=== PATIENT | female | born 1965 | race American Indian/Alaskan Native ===

== ENCOUNTER 2020-08-06 08:30 | Emergency (ER) | payer BC ==
[2020-08-06 08:43] VITALS: BP 136/88
[2020-08-06] MEDS ORDERED: BUTALB/ACETAMINOPHEN/CAFFEINE TAB PO ONE (09:13)
[2020-08-06] MEDS ORDERED: HYDROcodone/ACETAMINOPHEN 5-325 MG TAB PO ONE (09:13)
--- NOTE | 2020-08-06 09:25 | Emergency Department Report ---
ED General Adult HPI - General Chief complaint: Head Injury Stated complaint: FALL/HEAD INJURY Time Seen by Provider: 08/06/20 09:13 Source: patient, EMS Mode of arrival: Wheelchair Limitations: No Limitations - History of Present Illness Initial comments: 55-year-old female with history of hypertension presents with chief complaint of head injury. She reports this when she slipped on something causing her to fall forward and strike her head and left orbit on a fire extinguisher. Denies loss of consciousness. She does not take blood thinners. She reports a moderate to severe headache, mild dizziness but denies vomiting, vision changes. Symptoms are moderate to severe, sudden in onset, no alleviating or exacerbating factors - Related Data Previous Rx's Medication Instructions Recorded Last Taken Type Butalb/Acetamin/Caff 50-325-40 1 tab PO Q6HR PRN #12 tab 08/06/20 Unknown Rx [Fioricet 50-325-40] Allergies Allergy/AdvReac Type Severity Reaction Status Date / Time naproxen [From Naprosyn] Allergy Vomiting Verified 08/06/20 08:38 ED Review of Systems ROS: Stated complaint: FALL/HEAD INJURY Other details as noted in HPI Comment: All other systems reviewed and negative ED Past Medical Hx - Past Medical History Hx Hypertension: Yes - Surgical History Additional Surgical History: CSECTION - Social History Smoking Status: Never Smoker Substance Use Type: None - Medications Home Medications: Home Medications Medication Instructions Recorded Confirmed Last Taken Type Butalb/Acetamin/Caff 50-325-40 1 tab PO Q6HR PRN #12 tab 08/06/20 Unknown Rx [Fioricet 50-325-40] ED Physical Exam - General Limitations: No Limitations General appearance: alert, in no apparent distress - Head Head exam: Present: normocephalic, other (Small frontal hematoma above the left orbit, small abrasion, mild orbital floor tenderness on the left with slight swelling) - Eye Eye exam: Present: normal appearance - ENT ENT exam: Present: mucous membranes moist - Neck Neck exam: Present: normal inspection - Respiratory Respiratory exam: Present: normal lung sounds bilaterally. Absent: respiratory distress - Cardiovascular Cardiovascular Exam: Present: regular rate, normal rhythm. Absent: systolic murmur, diastolic murmur, rubs, gallop - GI/Abdominal GI/Abdominal exam: Present: soft, normal bowel sounds - Extremities Exam Extremities exam: Present: normal inspection - Back Exam Back exam: Present: normal inspection - Neurological Exam Neurological exam: Present: alert, oriented X3 - Psychiatric Psychiatric exam: Present: normal affect, normal mood - Skin Skin exam: Present: warm, dry, intact, normal color. Absent: rash ED Course Vital Signs 08/06/20 08:40 Temperature 98.8 F Pulse Rate 80 Respiratory 18 Rate Blood Pressure 136/88 O2 Sat by Pulse 96 Oximetry ED Medical Decision Making - Radiology Data Radiology results: report reviewed Small frontal hematoma otherwise no fracture, no acute intracranial hemorrhage - Medical Decision Making Patient presenting after head injury. Reports headache, dizziness, facial pain but denies any visual change or eye pain. On exam there is a small hematoma above the left orbit with a slight abrasion noted there is also some mild swelling and tenderness to the orbital floor. CTs will be obtained to rule out fracture/intracranial hemorrhage. Patient given Fioricet and [place]. CT is negative for acute findings. Advised on supportive care and outpatient PCP follow-up. Return precautions were given. - Differential Diagnosis Contusion, abrasion, rule out fracture, rule out ICH Critical care attestation.: If time is entered above; I have spent that time in minutes in the direct care of this critically ill patient, excluding procedure time. ED Disposition Clinical Impression: Traumatic hematoma of forehead Qualifiers: Encounter type: initial encounter Qualified Code(s): S00.83XA - Contusion of other part of head, initial encounter Closed head injury Qualifiers: Encounter type: initial encounter Qualified Code(s): S09.90XA - Unspecified injury of head, initial encounter Disposition: - TO HOME OR SELFCARE Is pt being admited?: No Condition: Good Instructions: Head Injury, Adult, [id number], Facial or Scalp Contusion Prescriptions: Butalb/Acetamin/Caff 50-325-40 [Fioricet 50-325-40] 1 tab PO Q6HR PRN #12 tab PRN Reason: Headache Referrals: PRIMARY CARE, [Primary Care Provider] - 3-5 Days Time of Disposition: 10:02
--- NOTE | 2020-08-06 09:52 | Cat Scan Report ---
CT HEAD WITHOUT CONTRAST INDICATION / CLINICAL INFORMATION: MAIN. Left-sided hip pain TECHNIQUE: All CT scans at this location are performed using CT dose reduction for ALARA by means of automated e xposure control. COMPARISON: None available. FINDINGS: There is no acute intracranial hemorrhage. Ventricles are normal in size without midline shift or mas s effect. There are some scattered areas of low-attenuation periventricular white matter which could represent nonspecific white matter change. No acute bone findings are seen. There is left frontal sca lp hematoma with soft tissue gas best seen on axial images. No underlying fractures seen ADDITIONAL FINDINGS: None. IMPRESSION: 1. No acute intracranial hemorrhage. 2. Small left frontal scalp hematoma. Signer Name: Magan Ruiz MD Signed: 08/06/2020 9:48 AM Workstation Name: [id number]
--- NOTE | 2020-08-06 09:55 | Cat Scan Report ---
CT MAXILLOFACIAL WITHOUT CONTRAST INDICATION / CLINICAL INFORMATION: MAIN. TECHNIQUE: All CT scans at this location are performed using CT dose reduction for ALARA by means of automated e xposure control. COMPARISON: None available. FINDINGS: FACIAL BONES: There is a small hematoma involving left frontal scalp. However, there is no clear CT e vidence of acute fracture involving the visualized facial bones at. The orbital drummond, sinuses and zy gomatic arches appear intact. This should be noted that the right mandibular condyle was not fully in cluded on this exam. PARANASAL SINUSES: There is minimal mucosal thickening along the inferior left maxillary sinus. Other da silva I, the paranasal sinuses are clear. There is mild to moderate deviation of the nasal septum towa rd the left with presence of a prominent right vargas bullosa. The optic globes demonstrate appropria te size and configuration. ORBITS: No significant post septal inflammatory changes are identified. The optic globes demonstrate appropriate size and configuration. VISUALIZED INTRACRANIAL STRUCTURES: No significant abnormality. ADDITIONAL FINDINGS: None. IMPRESSION: 1. There is a small hematoma involving left frontal scalp. There is no clear CT evidence of acute f racture involving the visualized facial bones. The study was specified as stat and dictated on an emergent basis at 8:49 AM Central standard time. Signer Name: Floyd Calvo MD Signed: 08/06/2020 9:51 AM Workstation Name: [id number]
== END 2020-08-06 10:23 | disposition home or self-care (01) ==
LOC: ED 08:30
DX: S00.83XA Contusion of other part of head, initial encounter (principal); I10 Essential (primary) hypertension; Z79.899 Other long term (current) drug therapy; W18.30XA Fall on same level, unspecified, initial encounter; Y93.89 Activity, other specified; Y92.89 Other specified places as the place of occurrence of the external cause; Y99.8 Other external cause status
CPT/HCPCS: 70450; 70486

== ENCOUNTER 2020-10-23 20:25 | Inpatient (IN) | payer BC ==
[2020-10-23] MEDS ORDERED: SODIUM CHLORIDE 0.9% 1000 ML 2,000 ML IV ONE (21:54)
--- NOTE | 2020-10-23 21:56 | Event Note ---
ED Screening Note Date of service: 10/23/20 Time: 21:54 ED Screening Note: 55-year-old -Chinese female presents to the emergency room for increased thirstiness fatigue and urinary frequency. Patient was seen by her doctor today old was diagnosed with diabetes and sent to the emergency room. Patient's blood sugar in triage was greater than 600. This initial assessment/diagnostic orders/clinical plan/treatment(s) is/are subject to change based on patients health status, clinical progression and re- assessment by fellow clinical providers in the ED. Further treatment and workup at subsequent clinical providers discretion. Patient/guardian urged not to elope from the ED as their condition may be serious if not clinically assessed and managed. Initial orders include:
[2020-10-23] MEDS ORDERED: INSULIN REGULAR, HUMAN 100 UNITS/1 ML IV ONE (22:09)
--- NOTE | 2020-10-23 22:14 | Emergency Department Report ---
HPI - General Chief Complaint: Hyperglycemia Time Seen by Provider: 10/23/20 22:09 - HPI HPI: 55-year-old female with only known history being hypertension presents complaining of several symptoms. Patient reports that for the last 2 weeks she has had severely increased thirst and very frequent urination. Over the last 3 days she has developed persistent dry mouth, lightheadedness, generalized weakness, and blurry vision. She saw her regular doctor yesterday who measured her blood glucose and it was too high to read. She was sent home on Metformin but decided to come in because of the aforementioned symptoms. Otherwise she has not tried anything for her symptoms. There are no known aggravating or alleviating factors, although on further questioning, she states that she has some shortness of breath only with exertion. She denies any recent fever/chills, headache, neck pain, back pain, chest pain, cough, abdominal pain, nausea/vomiting, dysuria, focal weakness, sensory changes, or any other complaints. ED Past Medical Hx - Past Medical History Hx Hypertension: Yes - Surgical History Additional Surgical History: CSECTION - Social History Smoking Status: Never Smoker - Medications Home Medications: Home Medications Medication Instructions Recorded Confirmed Last Taken Type Butalb/Acetamin/Caff 50-325-40 1 tab PO Q6HR PRN #12 tab 08/06/20 Unknown Rx [Fioricet 50-325-40] ED Review of Systems ROS: Stated complaint: VISON VERY WEAK,TIAGO Other details as noted in HPI Constitutional: denies: chills, fever Eyes: vision change. denies: eye pain ENT: denies: throat pain, congestion Respiratory: SOB with exertion. denies: cough, shortness of breath Cardiovascular: denies: chest pain, syncope Endocrine: increased thirst, increased urine Gastrointestinal: denies: abdominal pain, nausea, vomiting Genitourinary: denies: dysuria, hematuria Musculoskeletal: denies: back pain, myalgia Skin: denies: rash Neurological: denies: headache, weakness, numbness Physical Exam - Physical Exam Vital Signs: Vital Signs 10/23/20 21:32 Temperature 98.7 F Pulse Rate 120 H Respiratory 18 Rate Blood Pressure 172/103 O2 Sat by Pulse 99 Oximetry Physical Exam: GENERAL: Well developed and well nourished. No acute distress HEENT: Normocephalic. No obvious signs of trauma. Dry mucous membranes. EYES: Extraocular movements are intact. Pupils are equal round and reactive to light bilaterally NECK: Supple. Trachea is midline. LUNGS: Nonlabored breathing. Equal chest rise bilaterally. Clear to auscultation bilaterally. HEART/CARDIOVASCULAR: Tachycardic but with regular rhythm. No murmurs or rubs. VASCULAR: 2+ peripheral pulses. Cap refill < 2 seconds ABDOMEN: Abdomen is soft and nondistended. There is no significant tenderness, guarding or rebound. SKIN: Skin is warm and dry NEURO: Patient is awake, alert, and oriented. classification officer II-XII grossly intact. No focal deficits. Normal motor and sensory exam throughout. Normal speech. MUSCULOSKELETAL: No obvious deformities. No significant tenderness. Normal ROM throughout. BACK/SPINE: No costovertebral angle tenderness. ED Course Vital Signs 10/23/20 21:32 Temperature 98.7 F Pulse Rate 120 H Respiratory 18 Rate Blood Pressure 172/103 O2 Sat by Pulse 99 Oximetry ED Medical Decision Making - Lab Data Result diagrams: 10/23/20 21:38 10/24/20 07:45 Lab Results 10/23/20 10/23/20 10/23/20 Range/Units 21:36 21:38 21:38 WBC 6.8 (4.5-11.0) K/mm3 RBC 4.97 (3.65-5.03) M/mm3 Hgb 14.0 (10.1-14.3) gm/dl Hct 43.4 H (30.3-42.9) % MCV 87 (79-97) fl MCH 28 (28-32) pg MCHC 32 (30-34) % RDW 13.0 L (13.2-15.2) % Plt Count 227 (140-440) K/mm3 Lymph % (Auto) 42.9 H (13.4-35.0) % Buchanan % (Auto) 7.0 (0.0-7.3) % Eos % (Auto) 0.9 (0.0-4.3) % Baso % (Auto) 0.4 (0.0-1.8) % Lymph # (Auto) 2.9 (1.2-5.4) K/mm3 Buchanan # (Auto) 0.5 (0.0-0.8) K/mm3 Eos # (Auto) 0.1 (0.0-0.4) K/mm3 Baso # (Auto) 0.0 (0.0-0.1) K/mm3 Seg Neutrophils % 48.8 (40.0-70.0) % Seg Neutrophils # 3.3 (1.8-7.7) K/mm3 VBG pH (7.320-7.420) Sodium 132 L (137-145) mmol/L Potassium 4.9 (3.6-5.0) mmol/L Chloride 90.5 L (98-107) mmol/L Carbon Dioxide 23 (22-30) mmol/L Anion Gap 23 mmol/L BUN 20 H (7-17) mg/dL Creatinine 1.4 H (0.6-1.2) mg/dL Estimated GFR 47 ml/min BUN/Creatinine Ratio 14 % Glucose (65-100) mg/dL POC Glucose > 600 H (70-105) mg/dL Calcium 9.8 (8.4-10.2) mg/dL Total Bilirubin 0.60 (0.1-1.2) mg/dL AST 15 (5-40) units/L ALT 29 (7-56) units/L Alkaline Phosphatase 114 (35-129) units/L Troponin T (0.00-0.029) ng/mL NT-Pro-B Natriuret Pep (0-900) pg/mL Total Protein 7.9 (6.3-8.2) g/dL Albumin 4.6 (3.9-5) g/dL Albumin/Globulin Ratio 1.4 % Lipase (13-60) units/L 10/23/20 10/23/20 10/24/20 Range/Units 21:38 21:38 00:45 WBC (4.5-11.0) K/mm3 RBC (3.65-5.03) M/mm3 Hgb (10.1-14.3) gm/dl Hct (30.3-42.9) % MCV (79-97) fl MCH (28-32) pg MCHC (30-34) % RDW (13.2-15.2) % Plt Count (140-440) K/mm3 Lymph % (Auto) (13.4-35.0) % Buchanan % (Auto) (0.0-7.3) % Eos % (Auto) (0.0-4.3) % Baso % (Auto) (0.0-1.8) % Lymph # (Auto) (1.2-5.4) K/mm3 Buchanan # (Auto) (0.0-0.8) K/mm3 Eos # (Auto) (0.0-0.4) K/mm3 Baso # (Auto) (0.0-0.1) K/mm3 Seg Neutrophils % (40.0-70.0) % Seg Neutrophils # (1.8-7.7) K/mm3 VBG pH 7.312 L (7.320-7.420) Sodium (137-145) mmol/L Potassium (3.6-5.0) mmol/L Chloride (98-107) mmol/L Carbon Dioxide (22-30) mmol/L Anion Gap mmol/L BUN (7-17) mg/dL Creatinine (0.6-1.2) mg/dL Estimated GFR ml/min BUN/Creatinine Ratio % Glucose (65-100) mg/dL POC Glucose 491 H (70-105) mg/dL Calcium (8.4-10.2) mg/dL Total Bilirubin (0.1-1.2) mg/dL AST (5-40) units/L ALT (7-56) units/L Alkaline Phosphatase (35-129) units/L Troponin T (0.00-0.029) ng/mL NT-Pro-B Natriuret Pep (0-900) pg/mL Total Protein (6.3-8.2) g/dL Albumin (3.9-5) g/dL Albumin/Globulin Ratio % Lipase 34 (13-60) units/L 06/23/21 Range/Units 03:13 WBC (4.5-11.0) K/mm3 RBC (3.65-5.03) M/mm3 Hgb (10.1-14.3) gm/dl Hct (30.3-42.9) % MCV (79-97) fl MCH (28-32) pg MCHC (30-34) % RDW (13.2-15.2) % Plt Count (140-440) K/mm3 Lymph % (Auto) (13.4-35.0) % Buchanan % (Auto) (0.0-7.3) % Eos % (Auto) (0.0-4.3) % Baso % (Auto) (0.0-1.8) % Lymph # (Auto) (1.2-5.4) K/mm3 Buchanan # (Auto) (0.0-0.8) K/mm3 Eos # (Auto) (0.0-0.4) K/mm3 Baso # (Auto) (0.0-0.1) K/mm3 Seg Neutrophils % (40.0-70.0) % Seg Neutrophils # (1.8-7.7) K/mm3 VBG pH (7.320-7.420) Sodium (137-145) mmol/L Potassium (3.6-5.0) mmol/L Chloride (98-107) mmol/L Carbon Dioxide (22-30) mmol/L Anion Gap mmol/L BUN (7-17) mg/dL Creatinine (0.6-1.2) mg/dL Estimated GFR ml/min BUN/Creatinine Ratio % Glucose (65-100) mg/dL POC Glucose (70-105) mg/dL Calcium (8.4-10.2) mg/dL Total Bilirubin (0.1-1.2) mg/dL AST (5-40) units/L ALT (7-56) units/L Alkaline Phosphatase (35-129) units/L Troponin T < 0.010 (0.00-0.029) ng/mL NT-Pro-B Natriuret Pep 94.71 (0-900) pg/mL Total Protein (6.3-8.2) g/dL Albumin (3.9-5) g/dL Albumin/Globulin Ratio % Lipase (13-60) units/L - Radiology Data CT HEAD WITHOUT CONTRAST INDICATION / CLINICAL INFORMATION: Patient complains of blurry vision, DKA. TECHNIQUE: All CT scans at this location are performed using CT dose reduction for ALARA by means of automated exposure control. COMPARISON: 08/06/2020 FINDINGS: No acute intracranial hemorrhage. Ventricles are normal in size without midline shift or mass effect. There is some scattered areas of low- attenuation in the paratracheal and central white matter suggesting nonspecific white matter change. Aurora bullosa right middle nasal turbinate. ADDITIONAL FINDINGS: None. IMPRESSION: 1. No acute intracranial abnormality. Nonspecific white matter change in the periventricular and central white matter. Signer Name: Magan Tompkins MD Signed: 10/24/2020 12:36 AM Workstation Name: [id number] Transcribed By: MOHAN Dictated By: GERI TOMPKINS MD Electronically Authenticated By: GERI TOMPKINS MD Signed Date/Time: 10/24/20 0036 CHEST 2 VIEWS INDICATION / CLINICAL INFORMATION: DKA, SOB. COMPARISON: None available. FINDINGS: SUPPORT DEVICES: None. HEART / MEDIASTINUM: No significant abnormality. LUNGS / PLEURA: No significant pulmonary or pleural abnormality. No pneumothorax. ADDITIONAL FINDINGS: No significant additional findings. IMPRESSION: 1. No acute findings. Signer Name: Magan Tompkins MD Signed: 10/23/2020 11:03 PM Workstation Name: [id number] Transcribed By: MOHAN Dictated By: GERI TOMPKINS MD Electronically Authenticated By: GERI TOMPKINS MD Signed Date/Time: 10/23/20 2303 - Medical Decision Making 55-year-old female presents complaining of 2 weeks of increased thirst and urination as well as 3 days of generalized weakness, dry mouth, and blurry vision. Also reports some shortness of breath with exertion. Patient's fingerstick glucose here in the emergency department is greater than 600. On physical examination, she has very dry mucous membranes. She has a nonfocal neurologic exam. She is tachycardic but the remainder of her physical exam is within normal limits. Presentation is most consistent with HHS, although we will perform broad work-up with a full set of labs as well as chest x-ray and CT of the head given neurologic symptoms. We will give 2 L of normal saline and follow-up diagnostic studies and reassess the patient frequently. On repeat assessment at 12:10 AM, the patient reports that she feels the same, no better, but no worse. IV fluids are running. Labs have returned and reveal no significant leukocytosis or anemia. BMP reveals SJ with creatinine of 1.4 from unknown baseline. Glucose is 775 and the patient also has pseudohyponatremia. Bicarb is within normal range, and the patient's anion gap is very mild. Labs are consistent with HHS. We will therefore give an additional liter of lactated Ringer's 10 units of IV insulin followed by initiation of insulin 0.1 unit/kg/h continuous drip. On repeat assessment again at 12:55 AM, the patient states that she feels much better and her vision is slightly improved. CT of the head reveals no acute abnormalities although there are nonspecific white matter changes. I discussed with the patient the results of her lab work and the likely diagnosis as well as the plan for admission for further management. She expressed understanding and agreement with this plan of care. Critical Care Time: Yes (40) Critical care time in (mins) excluding proc time.: 40 Critical care attestation.: If time is entered above; I have spent that time in minutes in the direct care of this critically ill patient, excluding procedure time. Critical care time was spent in the assessment/evaluation and management of acutely life-threatening hyperosmolar hyperglycemic state requiring administration of IV insulin as well as initiation of an insulin drip. ED Disposition Clinical Impression: Hyperosmolar hyperglycemic state (HHS), SJ (acute kidney injury), Blurry vision, bilateral Disposition: [id number] OP ADMIT IP TO THIS HOSP Is pt being admited?: Yes Condition: Serious
[2020-10-23 22:44] LABS: Basophils % (Auto) 0.4 % (0.0-1.8); Eosinophils # (Auto) 0.1 K/mm3 (0.0-0.4); Eosinophils % (Auto) 0.9 % (0.0-4.3); Hematocrit 43.4 % (30.3-42.9); Lymphocytes # (Auto) 2.9 K/mm3 (1.2-5.4); Lymphocytes % (Auto) 42.9 % (13.4-35.0); Mean Corpuscular HGB Conc 32 % (30-34); Mean Corpuscular Volume 87 fl (79-97); Monocytes # (Auto) 0.5 K/mm3 (0.0-0.8); Platelet Count 227 K/mm3 (140-440); Red Blood Count 4.97 M/mm3 (3.65-5.03)
[2020-10-23 22:56] LABS: Albumin 4.6 g/dL (3.9-5); Calcium 9.8 mg/dL (8.4-10.2)
--- NOTE | 2020-10-23 23:08 | XRay Report ---
CHEST 2 VIEWS INDICATION / CLINICAL INFORMATION: DKA, SOB. COMPARISON: None available. FINDINGS: SUPPORT DEVICES: None. HEART / MEDIASTINUM: No significant abnormality. LUNGS / PLEURA: No significant pulmonary or pleural abnormality. No pneumothorax. ADDITIONAL FINDINGS: No significant additional findings. IMPRESSION: 1. No acute findings. Signer Name: Magan Ruiz MD Signed: 10/23/2020 11:03 PM Workstation Name: [id number]
[2020-10-24] MEDS ORDERED: INSULIN REGULAR, HUMAN 100 UNITS/1 ML ONE (00:57)
[2020-10-24] MEDS ORDERED: LACTATED RINGERS 1,000 ML ONE (00:58)
[2020-10-24] MEDS ORDERED: ONDANSETRON 4 MG/2 ML INJ IV PRN (03:32)
[2020-10-24] MEDS ORDERED: MAGNESIUM HYDROXIDE (MOM) ORAL LIQD UDC PO PRN (03:32)
[2020-10-24] MEDS ORDERED: DEXTROSE 50% IN WATER (25GM) 50 ML SYRINGE IV PRN (03:32)
[2020-10-24] MEDS ORDERED: MORPHINE 2 MG/1 ML INJ IV PRN (03:32)
--- NOTE | 2020-10-24 03:44 | History and Physical Report ---
History of Present Illness Date of examination: 10/24/20 Date of admission: 10/24/2020 Chief complaint: Increased thirst Increased urination Generalized weakness History of present illness: 55-year-old -[place] female with known history of hypertension presen ting to the emergency room today with multiple complaints including increased thirst, frequent urination, dry mouth generalized weakness and blurry vision which has been ongoing for about 2 to 3 weeks. She had gone to see a primary care physician yesterday during which her blood sugar was checked and was said to be quite elevated. She was prescribed Metformin but patient decided to present in the emergency room today for further evaluation. She denies any fever or chills, no chest pain or shortness of breath, no nausea vomiting, no abdominal pain, no hematuria or dysuria. Patient denies any sick contacts and no recent travel. Denies any contact with anyone with COVID-19. Work-up in the emergency room today reveals elevated blood glucose in the 700s. Creatinine was slightly elevated at 1.4. Baseline is unknown. Patient is currently being admitted for hyperosmolar hyperglycemic state. Past History Past Medical History: hypertension Past Surgical History: Social history: no significant social history Family history: diabetes (Diabetes mellitus in son and mother) Medications and Allergies Allergies Allergy/AdvReac Type Severity Reaction Status Date / Time naproxen [From Naprosyn] Allergy Vomiting Verified 10/24/20 03:04 Home Medications Medication Instructions Recorded Confirmed Last Taken Type Butalb/Acetamin/Caff 50-325-40 1 tab PO Q6HR PRN #12 tab 08/06/20 Unknown Rx [Fioricet 50-325-40] Active Meds: Active Medications Sodium Chloride (Nacl 0.9% 1000 Ml) 2,000 mls @ 999 mls/hr IV BOLUS ONE Stop: 10/23/20 23:54 Last Admin: 10/23/20 22:25 Dose: 999 mls/hr Documented by: Review of Systems Constitutional: weakness, no fever, no chills Ears, nose, mouth and throat: no nasal congestion, no sore throat Cardiovascular: no chest pain, no palpitations Respiratory: no cough, no shortness of breath Gastrointestinal: no abdominal pain, no nausea, no vomiting, no diarrhea Genitourinary Female: no flank pain, no dysuria, no hematuria Musculoskeletal: no neck pain, no low back pain Integumentary: no rash, no pruritis Neurological: no headaches, no confusion Psychiatric: no anxiety, no depression Endocrine: excessive thirst, polydipsia, polyuria Exam - Constitutional Vitals: Temp Pulse Resp BP Pulse Ox 98.7 F 120 H 18 172/103 99 10/23/20 21:32 10/23/20 21:32 10/23/20 21:32 10/23/20 21:32 10/23/20 21:32 General appearance: Present: no acute distress, obese - EENT Eyes: Present: PERRL, EOM intact. Absent: scleral icterus ENT: hearing intact, clear oral mucosa, dentition normal - Neck Neck: Present: supple, normal ROM - Respiratory Respiratory effort: normal Respiratory: bilateral: CTA - Cardiovascular Rhythm: regular Heart Sounds: Present: S1 & S2. Absent: gallop, systolic murmur, diastolic murmur, rub, click - Extremities Extremities: no ischemia, pulses intact, pulses symmetrical, No edema, normal temperature, normal color, Full ROM Peripheral Pulses: within normal limits - Abdominal General gastrointestinal: Present: soft, non-tender, non-distended, normal bowel sounds. Absent: mass - Integumentary Integumentary: Present: clear, warm, dry. Absent: rash - Musculoskeletal Musculoskeletal: strength equal bilaterally - Psychiatric Psychiatric: appropriate mood/affect, intact judgment & insight, memory intact, cooperative - Neurologic Neurologic: CNII-XII intact, no focal deficits, moves all extremities Results - Labs CBC & Chem 7: 10/23/20 21:38 10/23/20 21:38 Labs: Abnormal lab results 10/23/20 10/23/20 10/23/20 Range/Units 21:36 21:38 21:38 Hct 43.4 H (30.3-42.9) % RDW 13.0 L (13.2-15.2) % Lymph % (Auto) 42.9 H (13.4-35.0) % VBG pH (7.320-7.420) BUN 20 H (7-17) mg/dL Creatinine 1.4 H (0.6-1.2) mg/dL POC Glucose > 600 H (70-105) mg/dL 10/23/20 10/24/20 Range/Units 21:38 00:45 Hct (30.3-42.9) % RDW (13.2-15.2) % Lymph % (Auto) (13.4-35.0) % VBG pH 7.312 L (7.320-7.420) BUN (7-17) mg/dL Creatinine (0.6-1.2) mg/dL POC Glucose 491 H (70-105) mg/dL Assessment and Plan - Patient Problems (1) Hyperosmolar hyperglycemic state (HHS) Current Visit: No Status: Acute Plan to address problem: Patient is currently being placed on IV fluid and insulin drip. We will monitor Accu-Cheks closely. We will also check hemoglobin A1c. Diabetic education to be offered. (2) SJ (acute kidney injury) Current Visit: Yes Status: Acute Plan to address problem: Baseline BUN and creatinine unknown. We will continue on IV fluid. Consult placed to nephrology for evaluation. (3) DVT prophylaxis Current Visit: No Status: Acute Plan to address problem: Patient placed on subcutaneous heparin. (4) Full code status Current Visit: No Status: Acute Plan to address problem: Patient is a full code.
[2020-10-24] MEDS ORDERED: D5W/0.45% NACL/KCL 20 MEQ 20 MEQ/1,000 ML BAG IV SCH (04:00)
[2020-10-24] MEDS ORDERED: INSULIN REGULAR, HUMAN 100 UNITS in SODIUM CHLORIDE 0.9% 99 ML IV SCH ×2 (04:00)
[2020-10-24] MEDS ORDERED: LACTATED RINGERS 1,000 ML IV SCH (05:45)
[2020-10-24] MEDS ORDERED: INSULIN REGULAR, HUMAN 100 UNITS/1 ML IV ONE (06:00)
[2020-10-24] MEDS ORDERED: HEPARIN 5,000 UNIT/1 ML VIAL SUB-Q SCH (07:30)
--- NOTE | 2020-10-24 07:59 | Progress Note ---
Assessment and Plan Assessment and plan: --Hyperosmolar hyperglycemic state (HHS) Current Visit: No Status: Acute Continue rigorous IV hydration, and insulin drip. Closely monitor blood sugars and electrolytes Transition to long-acting insulin And start ADA diet when sugars are more reasonable Check hemoglobin A1c Diabetic education, diabetic diet education prior to discharge --Hyponatremia/pseudohyponatremia Current Visit: No Status: Acute Due to hyperglycemia, treat the underlying cause Monitor electrolytes, check magnesium and phosphate --SJ (acute kidney injury) Current Visit: Yes Status: Acute Vasomotor nephropathy/prerenal azotemia We will continue on IV fluid. Closely monitor renal function avoid nephrotoxins Nephrology consulted --Hypertension; Current Visit: No Status: Acute Closely monitor blood pressures Hydralazine as needed --Obesity; BMI 36.2 Current Visit: No Status: Acute Patient needs weight reduction Dietary modification, lifestyle changes, exercise as tolerated, when medically stable Patient may also need outpatient sleep study to rule out Obstructive sleep apnea --DVT prophylaxis Current Visit: No Status: Acute Lovenox subcu renal dose -- Full code status Current Visit: No Status: Acute Plan to address problem: Patient is a full code. We will closely monitor the patient and adjust management as needed Plan of care reviewed with the patient and her nurse. Will follow consultants evaluation and recommendations Critical care time 40 minutes The high probability of a clinically significant, sudden or life threatening deterioration of the [multi] system(s) required my full and direct attention, intervention and personal management. The aggregate critical care time was [45] minutes. This time is in addition to time spent performing reported procedures but includes the following: [x] Data Review and interpretation [x] Patient assessment and monitoring of vital signs [x] Documentation [x] Medication orders and management History Interval history: I have seen and examined the patient at the bedside in ER awaiting ICU bed assignment. Patient was admitted with hyperosmolar hyperglycemia, on insulin drip Patient feels hungry and wants some food Blood sugars range in 300s Patient complains of generalized weakness no nausea vomiting Vital signs reviewed Hospitalist Physical - Constitutional Vitals: Temp Pulse Resp BP Pulse Ox 98.7 F 97 H 12 149/83 98 10/23/20 21:32 10/24/20 07:31 10/24/20 07:31 10/24/20 07:31 10/24/20 07:31 General appearance: Present: no acute distress, well-nourished, obese - EENT Eyes: Present: PERRL, EOM intact - Neck Neck: Present: supple, normal ROM - Respiratory Respiratory effort: normal Respiratory: bilateral: diminished, negative: rales, rhonchi, wheezing - Cardiovascular Rhythm: regular Heart Sounds: Present: S1 & S2 - Extremities Extremities: no ischemia, No edema - Abdominal General gastrointestinal: soft, non-tender, non-distended, normal bowel sounds - Integumentary Integumentary: Present: clear, warm - Psychiatric Psychiatric: appropriate mood/affect, cooperative - Neurologic Neurologic: CNII-XII intact, moves all extremities Results - Labs CBC & Chem 7: 10/23/20 21:38 10/24/20 16:40 Labs: Laboratory Last Values WBC 6.8 K/mm3 (4.5-11.0) 10/23/20 21:38 RBC 4.97 M/mm3 (3.65-5.03) 10/23/20 21:38 Hgb 14.0 gm/dl (10.1-14.3) 10/23/20 21:38 Hct 43.4 % (30.3-42.9) H 10/23/20 21:38 MCV 87 fl (79-97) 10/23/20 21:38 MCH 28 pg (28-32) 10/23/20 21:38 MCHC 32 % (30-34) 10/23/20 21:38 RDW 13.0 % (13.2-15.2) L 10/23/20 21:38 Plt Count 227 K/mm3 (140-440) 10/23/20 21:38 Lymph % (Auto) 42.9 % (13.4-35.0) H 10/23/20 21:38 [place] % (Auto) 7.0 % (0.0-7.3) 10/23/20 21:38 Eos % (Auto) 0.9 % (0.0-4.3) 10/23/20 21:38 Baso % (Auto) 0.4 % (0.0-1.8) 10/23/20 21:38 Lymph # (Auto) 2.9 K/mm3 (1.2-5.4) 10/23/20 21:38 [place] # (Auto) 0.5 K/mm3 (0.0-0.8) 10/23/20 21:38 Eos # (Auto) 0.1 K/mm3 (0.0-0.4) 10/23/20 21:38 Baso # (Auto) 0.0 K/mm3 (0.0-0.1) 10/23/20 21:38 Seg Neutrophils % 48.8 % (40.0-70.0) 10/23/20 21:38 Seg Neutrophils # 3.3 K/mm3 (1.8-7.7) 10/23/20 21:38 VBG pH 7.312 (7.320-7.420) L 10/23/20 21:38 Sodium 132 mmol/L (137-145) L 10/23/20 21:38 Potassium 4.9 mmol/L (3.6-5.0) 10/23/20 21:38 Chloride 90.5 mmol/L (98-107) L 10/23/20 21:38 Carbon Dioxide 23 mmol/L (22-30) 10/23/20 21:38 Anion Gap 23 mmol/L 10/23/20 21:38 BUN 20 mg/dL (7-17) H 10/23/20 21:38 Creatinine 1.4 mg/dL (0.6-1.2) H 10/23/20 21:38 Estimated GFR 47 ml/min 10/23/20 21:38 BUN/Creatinine Ratio 14 % 10/23/20 21:38 Glucose mg/dL (65-100) 10/23/20 21:38 POC Glucose 330 mg/dL (70-105) H 10/24/20 04:16 Calcium 9.8 mg/dL (8.4-10.2) 10/23/20 21:38 Total Bilirubin 0.60 mg/dL (0.1-1.2) 10/23/20 21:38 AST 15 units/L (5-40) 10/23/20 21:38 ALT 29 units/L (7-56) 10/23/20 21:38 Alkaline Phosphatase 114 units/L (35-129) 10/23/20 21:38 Total Protein 7.9 g/dL (6.3-8.2) 10/23/20 21:38 Albumin 4.6 g/dL (3.9-5) 10/23/20 21:38 Albumin/Globulin Ratio 1.4 % 10/23/20 21:38 Lipase 34 units/L (13-60) 10/23/20 21:38 Active Medications - Current Medications Current Medications: Generic Name Dose Route Start Last Admin Trade Name Freq PRN Reason Stop Dose Admin Sodium Chloride 2,000 mls @ 999 mls/hr 10/23/20 21:54 10/23/20 22:25 Nacl 0.9% 1000 Ml IV 10/23/20 23:54 999 mls/hr BOLUS ONE Administration
--- NOTE | 2020-10-24 08:26 | Cat Scan Report ---
CT HEAD WITHOUT CONTRAST INDICATION / CLINICAL INFORMATION: Patient complains of blurry vision, DKA. TECHNIQUE: All CT scans at this location are performed using CT dose reduction for ALARA by means of automated e xposure control. COMPARISON: 08/06/2020 FINDINGS: No acute intracranial hemorrhage. Ventricles are normal in size without midline shift or mass effect. There is some scattered areas of low-attenuation in the paratracheal and central white matter sugges ting nonspecific white matter change. [place] bull[place] right middle nasal turbinate. ADDITIONAL FINDINGS: None. IMPRESSION: 1. No acute intracranial abnormality. Nonspecific white matter change in the periventricular and cent ral white matter. Signer Name: Magan Ruiz MD Signed: 10/24/2020 12:36 AM Workstation Name: [id number]
--- NOTE | 2020-10-24 09:07 | Consultation ---
History of Present Illness - Reason for Consult Consult date: 10/24/20 acute renal failure - History of Present Illness Mrs. Timmons is a 55yo who reports being in usual state of health until appx 1 week ago. She reports urinary frequency accompanied by increased thirst. Symptoms were subsequently followed by blurred vision and weakness. She presented to her PCP. Glucose registered as high. She was started on Metformin and sent home. She presented to the ED because symptoms failed to improve. In the ED, patient's glucose was greater than 600. Nephrology consultation requested for SCr 1.4mg/dL. She denies a prior hx of kidney disease. Past History Past Medical History: hypertension Past Surgical History: Social history: no significant social history Family history: diabetes (Diabetes mellitus in son and mother) Medications and Allergies Allergies Allergy/AdvReac Type Severity Reaction Status Date / Time naproxen [From Naprosyn] Allergy Vomiting Verified 10/24/20 03:04 Home Medications Medication Instructions Recorded Confirmed Last Taken Type Butalb/Acetamin/Caff 50-325-40 1 tab PO Q6HR PRN #12 tab 08/06/20 10/24/20 Unknown Rx [Fioricet 50-325-40] Cyclobenzaprine HCl 5 mg PO BID 10/24/20 10/25/20 Unknown History Gabapentin [Neurontin] 600 mg PO BID 10/24/20 10/24/20 Unknown History Glipizide/Metformin HCl 500 mg PO BID 10/24/20 10/25/20 Unknown History Hydrochlorothiazide 25 mg PO QDAY 10/24/20 10/24/20 Unknown History Ibuprofen [Motrin] 800 mg PO Q8HR PRN 10/24/20 10/24/20 Unknown History Loratadine [Allergy Relief] 10 mg PO QDAY MDD 10mg 10/24/20 10/25/20 Unknown History Metoprolol Tartrate [Lopressor] 100 mg PO QDAY 10/24/20 10/24/20 Unknown History metFORMIN 500 mg PO BID 10/25/20 10/25/20 Unknown History Active Meds: Active Medications Sodium Chloride (Nacl 0.9% 1000 Ml) 2,000 mls @ 999 mls/hr IV BOLUS ONE Stop: 10/23/20 23:54 Last Admin: 10/23/20 22:25 Dose: 999 mls/hr Documented by: Review of Systems All systems: negative Exam - Vital Signs Vital signs: Vital Signs Temp Pulse Resp BP Pulse Ox 98.7 F 120 H 18 172/103 99 10/23/20 21:32 10/23/20 21:32 10/23/20 21:32 10/23/20 21:32 10/23/20 21:32 - General Appearance General appearance: well-developed EENT: ATNC Respiratory: Clear to Ascultation Heart: regular Gastrointestinal: Present: normal, guarding. Absent: tenderness, distended Integumentary: no rash, warm and dry Neurologic: no focal deficit, alert and oriented x3 Psychiatric: mood/affect appropriate Results - Lab Results 10/23/20 21:38 10/24/20 20:27 Most recent lab results Calcium 9.8 mg/dL (8.4-10.2) 10/23/20 21:38 Assessment and Plan Impression * Acute kidney injury secondary to prerenal azotemia due to volume depletion * New onset type II DM * Hypertension Plan: * Renal function improved with IVF * Encouraged po hydration * Glycemic control per primary team * Avoid potential nephrotoxins * AM labs
[2020-10-24 09:28] LABS: Bilirubin,Urine NEG (Negative); Blood,Urine NEG (Negative); Color,Urine Yellow (Yellow); HCG Qualitative,Urine Negative (Negative); Mucus,Urine FEW /HPF; Urobilinogen,Urine < 2.0 mg/dL (<2.0)
[2020-10-24 09:44] LABS: BUN/Creatinine Ratio 18; Blood Urea Nitrogen 16 mg/dL (7-17); Calcium 9.3 mg/dL (8.4-10.2); Hemolysis Index 6
--- NOTE | 2020-10-24 12:06 | Event Note ---
Date: 10/24/20 Blood sugars reasonable control And anion gap closed, bicarb normal level Patient feels better Will DC insulin drip Start ADA diet Change IV fluids to normal saline Accu-Cheks before every meal and at bedtime Long-acting insulin Novolin 70/30 8 units twice a day Closely monitor blood sugars and increase insulin dose Patient has mild hypophosphatemia; add Neutra-Phos 2 days Closely monitor electrolytes Downgrade the patient to medical floor
[2020-10-24] MEDS ORDERED: INSULIN NPH/REGULAR 70/30 INJ SUB-Q SCH (17:00)
[2020-10-24] MEDS ORDERED: cefTRIAXone/NS 1 GM/50 ML 1 GM/50 ML BAG IV ONE (17:07)
[2020-10-24 17:10] LABS: BUN/Creatinine Ratio 18; Blood Urea Nitrogen 16 mg/dL (7-17); Calcium 8.6 mg/dL (8.4-10.2); Hemolysis Index 13
[2020-10-24] MEDS: INSULIN NPH/REGULAR 70/30 INJ SUB-Q SCH (18:51)
[2020-10-24] MEDS: INSULIN LISPRO 100 UNIT/ML SUB-Q SCH ×2 (19:28→22:41)
[2020-10-24 21:04] LABS: BUN/Creatinine Ratio 18; Blood Urea Nitrogen 16 mg/dL (7-17); Hemolysis Index 33
[2020-10-24] MEDS: PHOS-NAK POWDER PACKET PO SCH ×2 (22:12→22:42)
[2020-10-24] MEDS: ENOXAPARIN 40 MG/0.4 ML INJ SUB-Q SCH (22:13)
[2020-10-25] MEDS: SODIUM CHLORIDE 0.9% 1000 ML 1,000 ML IV SCH ×2 (05:01→14:15)
--- NOTE | 2020-10-25 07:31 | Progress Note ---
Assessment and Plan Assessment and plan: Morning labs not done yet --s/p Hyperosmolar hyperglycemic state (HHS) Current Visit: No Status: Acute Continue rigorous IV hydration, off insulin drip. Closely monitor blood sugars and electrolytes Transitioned to long-acting insulin,Hb A1c 12.5,ADA diet , Patient is on oral hypoglycemics at home , Metformin and glipizide --Uncontrolled type 2 diabetes mellitus; A1c 12.5 Current Visit: No Status: Acute Accu-Chek sliding scale coverage ADA diet Increase Novolin 70/30 dose as needed I will add home medication Metformin 500 twice a day Diabetic education, diabetic diet education Home health nurse for disease monitoring upon discharge --Hyponatremia/pseudohyponatremia Current Visit: No Status: Acute Due to hyperglycemia, treat the underlying cause Monitor electrolytes, check magnesium and phosphate --SJ (acute kidney injury) Current Visit: Yes Status: Acute/resolved Vasomotor nephropathy/prerenal azotemia We will continue on IV fluid. Resolved, recommend plenty of oral fluids --Hypertension; Current Visit: No Status: Acute Closely monitor blood pressures Hydralazine as needed Resume home antihypertensives --Obesity; BMI 36.2 Current Visit: No Status: Acute Patient needs weight reduction Dietary modification, lifestyle changes, exercise as tolerated, when medically stable Patient may also need outpatient sleep study to rule out Obstructive sleep apnea --DVT prophylaxis Current Visit: No Status: Acute Lovenox subcu renal dose -- Full code status Current Visit: No Status: Acute Plan to address problem: Patient is a full code. We will closely monitor the patient and adjust management as needed Plan of care reviewed with the patient and her nurse. Will follow consultants evaluation and recommendations 10/25/2020; admitted with hyperosmolar hyperglycemia Status post insulin drip, started 7030 long-acting insulin added Metformin Closely monitor blood sugars, A1c 12.5, home health nurse at discharge Diabetic education and nutrition education Possible discharge in 1 to 2 days if stable History Interval history: Morning labs not done yet Patient complains of severe abdominal and epigastric pain with nausea and vomiting In mild distress, Sugars are reasonable control Vital signs reviewed Hospitalist Physical - Constitutional Vitals: Temp Pulse Resp BP Pulse Ox 98.4 F 77 16 128/65 99 10/25/20 03:50 10/25/20 03:50 10/25/20 03:50 10/25/20 03:50 10/25/20 03:50 General appearance: Present: no acute distress, well-nourished, obese - EENT Eyes: Present: PERRL, EOM intact - Neck Neck: Present: supple, normal ROM - Respiratory Respiratory effort: normal Respiratory: bilateral: diminished, negative: rales, rhonchi, wheezing - Cardiovascular Rhythm: regular Heart Sounds: Present: S1 & S2 - Extremities Extremities: no ischemia, No edema - Abdominal General gastrointestinal: soft, non-tender, non-distended, normal bowel sounds - Integumentary Integumentary: Present: clear, warm - Psychiatric Psychiatric: appropriate mood/affect, cooperative - Neurologic Neurologic: moves all extremities HEART Score - HEART Score Troponin: Troponin T < 0.010 ng/mL (0.00-0.029) 10/24/20 03:13 Results - Labs CBC & Chem 7: 10/25/20 15:19 10/25/20 15:19 Labs: Laboratory Last Values WBC 6.8 K/mm3 (4.5-11.0) 10/23/20 21:38 RBC 4.97 M/mm3 (3.65-5.03) 10/23/20 21:38 Hgb 14.0 gm/dl (10.1-14.3) 10/23/20 21:38 Hct 43.4 % (30.3-42.9) H 10/23/20 21:38 MCV 87 fl (79-97) 10/23/20 21:38 MCH 28 pg (28-32) 10/23/20 21:38 MCHC 32 % (30-34) 10/23/20 21:38 RDW 13.0 % (13.2-15.2) L 10/23/20 21:38 Plt Count 227 K/mm3 (140-440) 10/23/20 21:38 Lymph % (Auto) 42.9 % (13.4-35.0) H 10/23/20 21:38 [place] % (Auto) 7.0 % (0.0-7.3) 10/23/20 21:38 Eos % (Auto) 0.9 % (0.0-4.3) 10/23/20 21:38 Baso % (Auto) 0.4 % (0.0-1.8) 10/23/20 21:38 Lymph # (Auto) 2.9 K/mm3 (1.2-5.4) 10/23/20 21:38 [place] # (Auto) 0.5 K/mm3 (0.0-0.8) 10/23/20 21:38 Eos # (Auto) 0.1 K/mm3 (0.0-0.4) 10/23/20 21:38 Baso # (Auto) 0.0 K/mm3 (0.0-0.1) 10/23/20 21:38 Seg Neutrophils % 48.8 % (40.0-70.0) 10/23/20 21:38 Seg Neutrophils # 3.3 K/mm3 (1.8-7.7) 10/23/20 21:38 VBG pH 7.312 (7.320-7.420) L 10/23/20 21:38 Sodium 128 mmol/L (137-145) L 10/24/20 20:27 Potassium 3.9 mmol/L (3.6-5.0) 10/24/20 20:27 Chloride 93.4 mmol/L (98-107) L 10/24/20 20:27 Carbon Dioxide 22 mmol/L (22-30) 10/24/20 20:27 Anion Gap 17 mmol/L 10/24/20 20:27 BUN 16 mg/dL (7-17) 10/24/20 20:27 Creatinine 0.9 mg/dL (0.6-1.2) 10/24/20 20:27 Estimated GFR > 60 ml/min 10/24/20 20:27 BUN/Creatinine Ratio 18 % 10/24/20 20:27 Glucose 381 mg/dL (65-100) H 10/24/20 20:27 POC Glucose 340 mg/dL (70-105) H 10/24/20 21:36 Hemoglobin A1c 12.5 % (4-6) H 10/24/20 09:02 Calcium 9.0 mg/dL (8.4-10.2) 10/24/20 20:27 Phosphorus 2.10 mg/dL (2.5-4.5) L 10/24/20 03:32 Magnesium 2.20 mg/dL (1.7-2.3) 10/24/20 03:32 Total Bilirubin 0.60 mg/dL (0.1-1.2) 10/23/20 21:38 AST 15 units/L (5-40) 10/23/20 21:38 ALT 29 units/L (7-56) 10/23/20 21:38 Alkaline Phosphatase 114 units/L (35-129) 10/23/20 21:38 Troponin T < 0.010 ng/mL (0.00-0.029) 10/24/20 03:13 NT-Pro-B Natriuret Pep 94.71 pg/mL (0-900) 10/24/20 03:13 Total Protein 7.9 g/dL (6.3-8.2) 10/23/20 21:38 Albumin 4.6 g/dL (3.9-5) 10/23/20 21:38 Albumin/Globulin Ratio 1.4 % 10/23/20 21:38 Lipase 34 units/L (13-60) 10/23/20 21:38 Urine Color Yellow (Yellow) 10/24/20 08:40 Urine Turbidity Slightly-cloudy (Clear) 10/24/20 08:40 Urine pH 6.0 (5.0-7.0) 10/24/20 08:40 Ur Specific [place] 1.038 (1.003-1.030) H 10/24/20 08:40 Urine Protein 30 mg/dl mg/dL (Negative) 10/24/20 08:40 Urine Glucose (UA) >=500 mg/dL (Negative) 10/24/20 08:40 Urine Ketones 80 mg/dL (Negative) 10/24/20 08:40 Urine Blood Neg (Negative) 10/24/20 08:40 Urine Nitrite Neg (Negative) 10/24/20 08:40 Ur Reducing Substances Not Reportable 10/24/20 08:40 Urine Bilirubin Neg (Negative) 10/24/20 08:40 Urine Ictotest Not Reportable 10/24/20 08:40 Urine Urobilinogen < 2.0 mg/dL (<2.0) 10/24/20 08:40 Ur Leukocyte Esterase Sm (Negative) 10/24/20 08:40 Urine WBC (Auto) 53.0 /HPF (0.0-6.0) H 10/24/20 08:40 Urine RBC (Auto) 4.0 /HPF (0.0-6.0) 10/24/20 08:40 U Epithel Cells (Auto) 9.0 /HPF (0-13.0) 10/24/20 08:40 Urine Mucus Few /HPF 10/24/20 08:40 Urine HCG, Qual Negative (Negative) 10/24/20 08:40 Rico/IV: Voiding Method Toilet Active Medications - Current Medications Current Medications: Generic Name Dose Route Start Last Admin Trade Name Freq PRN Reason Stop Dose Admin Dextrose 0 ml 10/24/20 03:32 Dextrose 50% In Water (25gm) 50 Ml Syringe IV Q30MIN PRN Hypoglycemia Protocol Enoxaparin Sodium 40 mg 10/24/20 10:00 10/24/20 22:13 Enoxaparin 40 Mg/0.4 Ml Inj SUB-Q Not Given QDAY@1000 WILMER Protocol Sodium Chloride 1,000 mls @ 150 mls/hr 10/24/20 03:45 10/25/20 05:01 Nacl 0.9% 1000 Ml IV 150 mls/hr DIRECT WILMER Administration Insulin Human Isoph/Insulin Regular 14 unit 10/24/20 18:43 10/24/20 18:51 Insulin Nph/Regular 70/30 Inj SUB-Q 14 unit BIDDIAB WILMER Administration Insulin Human Lispro 0 unit 10/24/20 16:30 10/24/20 22:41 Insulin Lispro 100 Unit/Ml SUB-Q 8 unit ACHS WILMER Administration Protocol Magnesium Hydroxide 30 ml 10/24/20 03:32 Magnesium Hydroxide (Mom) Oral Liqd Udc PO Q4H PRN Constipation Morphine Sulfate 2 mg 10/24/20 03:32 Morphine 2 Mg/1 Ml Inj IV Q4H PRN Pain, Moderate (4-6) Ondansetron HCl 4 mg 10/24/20 03:32 Ondansetron 4 Mg/2 Ml Inj IV Q8H PRN Nausea And Vomiting Potassium Phos/Sodium Phos 1 each 10/24/20 14:00 10/24/20 22:42 Phos-Nak Powder Packet PO 10/25/20 22:01 1 each Q12HR WILMER Administration Sodium Chloride 10 ml 10/24/20 10:00 10/24/20 22:42 Sodium Chloride 0.9% 10 Ml Flush Syringe IV 10 ml BID WILMER Administration Sodium Chloride 10 ml 10/24/20 03:32 Sodium Chloride 0.9% 10 Ml Flush Syringe IV PRN PRN LINE FLUSH
--- NOTE | 2020-10-25 08:34 | Progress Note ---
Assessment and Plan Impression * Acute kidney injury secondary to prerenal azotemia due to volume depletion * New onset type II DM * Hypertension * Proteinuria Plan: * SJ resolved. Renal function wnl * UA notable for protein * Obtain UPCR * Start low dose ARB for renoprotective benefits * Encouraged po hydration * Glycemic control per primary team * Avoid potential nephrotoxins * AM labs Subjective Date of service: 10/25/20 Interval history: Patient has no complaints today Objective - Vital Signs Vital signs: Vital Signs - 12hr 10/24/20 10/24/20 10/24/20 21:23 21:36 22:00 Temperature 99.2 F Pulse Rate 78 98 H Respiratory 19 16 20 Rate Blood Pressure 155/99 Blood Pressure 147/78 [Right] O2 Sat by Pulse 100 99 Oximetry 10/25/20 03:50 Temperature 98.4 F Pulse Rate 77 Respiratory 16 Rate Blood Pressure 128/65 Blood Pressure [Right] O2 Sat by Pulse 99 Oximetry - General Appearance General appearance: well-developed, well-nourished EENT: ATNC Respiratory: Present: Clear to Ascultation Cardiology: regular, S1S2 Gastrointestinal: normal, no tenderness, no distended Integumentary: no rash, warm and dry Neurologic: no focal deficit, alert and oriented x3 Musculoskeletal: other (no edema) Psychiatric: cooperative - Lab 10/23/20 21:38 10/24/20 20:27 Most recent lab results Calcium 9.0 mg/dL (8.4-10.2) 10/24/20 20:27 Phosphorus 2.10 mg/dL (2.5-4.5) L 10/24/20 03:32 Magnesium 2.20 mg/dL (1.7-2.3) 10/24/20 03:32 Medications & Allergies - Medications Allergies/Adverse Reactions: Allergies naproxen [From Naprosyn] Allergy (Verified 10/24/20 03:04) Vomiting Home Medications: Home Medications Medication Instructions Recorded Confirmed Last Taken Type Butalb/Acetamin/Caff 50-325-40 1 tab PO Q6HR PRN #12 tab 08/06/20 10/24/20 Unknown Rx [Fioricet 50-325-40] Cyclobenzaprine HCl 5 mg PO BID 10/24/20 10/25/20 Unknown History Gabapentin [Neurontin] 600 mg PO BID 10/24/20 10/24/20 Unknown History Glipizide/Metformin HCl 500 mg PO BID 10/24/20 10/25/20 Unknown History Hydrochlorothiazide 25 mg PO QDAY 10/24/20 10/24/20 Unknown History Ibuprofen [Motrin] 800 mg PO Q8HR PRN 10/24/20 10/24/20 Unknown History Loratadine [Allergy Relief] 10 mg PO QDAY MDD 10mg 10/24/20 10/25/20 Unknown History Metoprolol Tartrate [Lopressor] 100 mg PO QDAY 10/24/20 10/24/20 Unknown History metFORMIN 500 mg PO BID 10/25/20 10/25/20 Unknown History Active Medications: Generic Name Dose Route Start Last Admin Trade Name Freq PRN Reason Stop Dose Admin Cetirizine HCl 10 mg 10/25/20 10:00 Cetirizine 10 Mg Tab PO DAILY WILMER Dextrose 0 ml 10/24/20 03:32 Dextrose 50% In Water (25gm) 50 Ml Syringe IV Q30MIN PRN Hypoglycemia Protocol Enoxaparin Sodium 40 mg 10/24/20 10:00 10/24/20 22:13 Enoxaparin 40 Mg/0.4 Ml Inj SUB-Q Not Given QDAY@1000 [facility] Protocol Gabapentin 600 mg 10/25/20 10:00 Gabapentin 300 Mg Cap PO BID WILMER Hydrochlorothiazide 25 mg 10/25/20 10:00 Hydrochlorothiazide 25 Mg Tab PO QDAY [facility] Sodium Chloride 1,000 mls @ 150 mls/hr 10/24/20 03:45 10/25/20 05:01 Nacl 0.9% 1000 Ml IV 150 mls/hr DIRECT WILMER Administration Insulin Human Isoph/Insulin Regular 14 unit 10/24/20 18:43 10/24/20 18:51 Insulin Nph/Regular 70/30 Inj SUB-Q 14 unit BIDDIAB WILMER Administration Insulin Human Lispro 0 unit 10/24/20 16:30 10/24/20 22:41 Insulin Lispro 100 Unit/Ml SUB-Q 8 unit ACHS WILMER Administration Protocol Magnesium Hydroxide 30 ml 10/24/20 03:32 Magnesium Hydroxide (Mom) Oral Liqd Udc PO Q4H PRN Constipation Metformin HCl 500 mg 10/25/20 09:00 Metformin 500 Mg Tab PO BIDDIAB WILMER Morphine Sulfate 2 mg 10/24/20 03:32 Morphine 2 Mg/1 Ml Inj IV Q4H PRN Pain, Moderate (4-6) Ondansetron HCl 4 mg 10/24/20 03:32 Ondansetron 4 Mg/2 Ml Inj IV Q8H PRN Nausea And Vomiting Potassium Phos/Sodium Phos 1 each 10/24/20 14:00 10/24/20 22:42 Phos-Nak Powder Packet PO 10/25/20 22:01 1 each Q12HR WILMER Administration Sodium Chloride 10 ml 10/24/20 10:00 10/24/20 22:42 Sodium Chloride 0.9% 10 Ml Flush Syringe IV 10 ml BID WILMER Administration Sodium Chloride 10 ml 10/24/20 03:32 Sodium Chloride 0.9% 10 Ml Flush Syringe IV PRN PRN LINE FLUSH
[2020-10-25] MEDS: INSULIN LISPRO 100 UNIT/ML SUB-Q SCH ×4 (08:46→21:22)
[2020-10-25] MEDS: INSULIN NPH/REGULAR 70/30 INJ SUB-Q SCH ×2 (09:11→18:17)
[2020-10-25] MEDS: metFORMIN 500 MG TAB PO SCH ×2 (09:58→18:17)
[2020-10-25] MEDS: PHOS-NAK POWDER PACKET PO SCH ×2 (09:58→21:20)
[2020-10-25] MEDS: ENOXAPARIN 40 MG/0.4 ML INJ SUB-Q SCH (09:58)
[2020-10-25] MEDS: CETIRIZINE 10 MG TAB PO SCH (09:59)
[2020-10-25] MEDS: hydroCHLOROthiazide 25 MG TAB PO SCH (09:59)
[2020-10-25] MEDS: GABAPENTIN 300 MG CAP PO SCH ×2 (09:59→21:21)
[2020-10-25] MEDS: LOSARTAN 25 MG TAB PO SCH (09:59)
[2020-10-25] MEDS ORDERED: NON-FORMULARY EACH (Loratadine [Allergy Relief] 10 MG Tablet) PO SCH (10:00)
[2020-10-25] MEDS ORDERED: NON-FORMULARY EACH (Hydrochlorothiazide 25 MG) PO SCH (10:00)
[2020-10-25] MEDS ORDERED: NON-FORMULARY EACH (Gabapentin [Neurontin] 600 MG Tablet) PO SCH (10:00)
[2020-10-25] MEDS ORDERED: NON-FORMULARY EACH (Metformin 500 MG) PO SCH (10:00)
--- NOTE | 2020-10-25 14:27 | Electrocardiograph Report ---
[facility] Test Date: 2020-10-25 Test Time: 08:39:24 Pat Name: FRANNY CHAU Department: Room: A384 1 Gender: F Scrap Preparation Supervisor: JOSE : [id number] Requested By: ZARIA STERN Order Number: [id number] Reading MD: Venus Chen Measurements Intervals [place] Rate: 92 P: 46 NM: 149 QRS: -9 QRSD: 81 T: 177 QT: 358 QTc: 443 Interpretive Statements Sinus rhythm Probable LVH with secondary repol abnrm No previous ECG available for comparison Electronically Signed On 10-25-2020 14:27:32 EDT by Venus Chen
[2020-10-25 15:40] LABS: Basophils # (Auto) 0.1 K/mm3 (0.0-0.1); Basophils % (Auto) 1.1 % (0.0-1.8); Eosinophils # (Auto) 0.1 K/mm3 (0.0-0.4); Eosinophils % (Auto) 1.9 % (0.0-4.3); Hematocrit 42.2 % (30.3-42.9); Lymphocytes # (Auto) 3.1 K/mm3 (1.2-5.4); Lymphocytes % (Auto) 47.4 % (13.4-35.0); Mean Corpuscular HGB Conc 33 % (30-34); Mean Corpuscular Volume 84 fl (79-97); Monocytes # (Auto) 0.3 K/mm3 (0.0-0.8); Monocytes % (Auto) 5.3 % (0.0-7.3); Platelet Count 217 K/mm3 (140-440); Red Cell Distribution Width 12.5 % (13.2-15.2)
[2020-10-25 16:06] LABS: Alanine Aminotransferase 34 units/L (7-56); Albumin 4.2 g/dL (3.9-5); BUN/Creatinine Ratio 16; Blood Urea Nitrogen 14 mg/dL (7-17); Calcium 9.4 mg/dL (8.4-10.2); Hemolysis Index 42
[2020-10-26] MEDS: SODIUM CHLORIDE 0.9% 1000 ML 1,000 ML IV SCH (02:07)
--- NOTE | 2020-10-26 07:55 | Progress Note ---
Assessment and Plan Assessment and plan: --s/p Hyperosmolar hyperglycemic state (HHS) Current Visit: No Status: Acute Continue rigorous IV hydration, off insulin drip. Closely monitor blood sugars and electrolytes Transitioned to long-acting insulin,Hb A1c 12.5,ADA diet , Patient is on oral hypoglycemics at home , Metformin and glipizide --Uncontrolled type 2 diabetes mellitus; A1c 12.5 Current Visit: No Status: Acute Accu-Chek sliding scale coverage ADA diet Increase Novolin 70/30 dose to 22 units twice a day Continue Metformin 500 twice a day Diabetic education, diabetic diet education Home health nurse for disease monitoring upon discharge --Hyponatremia/pseudohyponatremia Current Visit: No Status: Acute Due to hyperglycemia, significantly improved We will adjust medications for better control of blood sugars monitor electrolytes, --SJ (acute kidney injury) Current Visit: Yes Status: Acute/resolved Vasomotor nephropathy/prerenal azotemia Resolved, avoid nephrotoxins --Hypertension; Current Visit: No Status: Acute Moderate control continue current antihypertensives As needed hydralazine --Obesity; BMI 36.2 Current Visit: No Status: Acute Counseled the patient and advised weight reduction Dietary modification, lifestyle changes, exercise as tolerated, when medically stable Patient may also need outpatient sleep study to rule out Obstructive sleep apnea --DVT prophylaxis Current Visit: No Status: Acute Lovenox subcu -- Full code status Current Visit: No Status: Acute Plan to address problem: Patient is a full code. We will closely monitor the patient and adjust management as needed Plan of care reviewed with the patient and her nurse. Will follow consultants evaluation and recommendations 10/25/2020; admitted with hyperosmolar hyperglycemia Status post insulin drip, started 7030 long-acting insulin added Metformin Closely monitor blood sugars, A1c 12.5, home health nurse at discharge Diabetic education and nutrition education Possible discharge in 1 to 2 days if stable 10/26/2020; patient's blood sugars remain uncontrolled High increase 70/30 Novolin to 22 units twice a day Continue Metformin Possible discharge in 1 to 2 days if blood sugars are well controlled Home health nurse at discharge History Interval history: Blood sugars remain uncontrolled Patient is on sliding scale coverage, Novolin 70/30 insulin Sugars are in 300s this morning Patient has no new complaints Vital signs reviewed Hospitalist Physical - Constitutional Vitals: Temp Pulse Resp BP Pulse Ox 98.0 F 86 20 160/96 100 10/26/20 06:03 10/26/20 06:03 10/26/20 06:03 10/26/20 06:03 10/26/20 06:03 General appearance: Present: no acute distress, well-nourished, obese - EENT Eyes: Present: PERRL, EOM intact - Neck Neck: Present: supple, normal ROM - Respiratory Respiratory effort: normal Respiratory: bilateral: diminished, negative: rales, rhonchi, wheezing - Cardiovascular Rhythm: regular Heart Sounds: Present: S1 & S2 - Extremities Extremities: no ischemia, No edema - Abdominal General gastrointestinal: soft, non-tender, non-distended, normal bowel sounds - Integumentary Integumentary: Present: clear, warm - Psychiatric Psychiatric: appropriate mood/affect, cooperative - Neurologic Neurologic: CNII-XII intact, moves all extremities HEART Score - HEART Score Troponin: Troponin T < 0.010 ng/mL (0.00-0.029) 10/24/20 03:13 Results - Labs CBC & Chem 7: 10/25/20 15:19 10/25/20 15:19 Labs: Laboratory Last Values WBC 6.5 K/mm3 (4.5-11.0) 10/25/20 15:19 RBC 5.00 M/mm3 (3.65-5.03) 10/25/20 15:19 Hgb 14.0 gm/dl (10.1-14.3) 10/25/20 15:19 Hct 42.2 % (30.3-42.9) 10/25/20 15:19 MCV 84 fl (79-97) 10/25/20 15:19 MCH 28 pg (28-32) 10/25/20 15:19 MCHC 33 % (30-34) 10/25/20 15:19 RDW 12.5 % (13.2-15.2) L 10/25/20 15:19 Plt Count 217 K/mm3 (140-440) 10/25/20 15:19 Lymph % (Auto) 47.4 % (13.4-35.0) H 10/25/20 15:19 [place] % (Auto) 5.3 % (0.0-7.3) 10/25/20 15:19 Eos % (Auto) 1.9 % (0.0-4.3) 10/25/20 15:19 Baso % (Auto) 1.1 % (0.0-1.8) 10/25/20 15:19 Lymph # (Auto) 3.1 K/mm3 (1.2-5.4) 10/25/20 15:19 [place] # (Auto) 0.3 K/mm3 (0.0-0.8) 10/25/20 15:19 Eos # (Auto) 0.1 K/mm3 (0.0-0.4) 10/25/20 15:19 Baso # (Auto) 0.1 K/mm3 (0.0-0.1) 10/25/20 15:19 Seg Neutrophils % 44.3 % (40.0-70.0) 10/25/20 15:19 Seg Neutrophils # 2.9 K/mm3 (1.8-7.7) 10/25/20 15:19 VBG pH 7.312 (7.320-7.420) L 10/23/20 21:38 Sodium 134 mmol/L (137-145) L 10/25/20 15:19 Potassium 4.0 mmol/L (3.6-5.0) 10/25/20 15:19 Chloride 100.7 mmol/L (98-107) 10/25/20 15:19 Carbon Dioxide 21 mmol/L (22-30) L 10/25/20 15:19 Anion Gap 16 mmol/L 10/25/20 15:19 BUN 14 mg/dL (7-17) 10/25/20 15:19 Creatinine 0.9 mg/dL (0.6-1.2) 10/25/20 15:19 Estimated GFR > 60 ml/min 10/25/20 15:19 BUN/Creatinine Ratio 16 % 10/25/20 15:19 Glucose 255 mg/dL (65-100) H 10/25/20 15:19 POC Glucose 309 mg/dL (70-105) H 10/26/20 07:38 Hemoglobin A1c 12.5 % (4-6) H 10/24/20 09:02 Calcium 9.4 mg/dL (8.4-10.2) 10/25/20 15:19 Phosphorus 2.00 mg/dL (2.5-4.5) L 10/25/20 15:19 Magnesium 2.10 mg/dL (1.7-2.3) 10/25/20 15:19 Total Bilirubin 0.60 mg/dL (0.1-1.2) 10/25/20 15:19 AST 35 units/L (5-40) 10/25/20 15:19 ALT 34 units/L (7-56) 10/25/20 15:19 Alkaline Phosphatase 110 units/L (35-129) 10/25/20 15:19 Troponin T < 0.010 ng/mL (0.00-0.029) 10/24/20 03:13 NT-Pro-B Natriuret Pep 94.71 pg/mL (0-900) 10/24/20 03:13 Total Protein 7.7 g/dL (6.3-8.2) 10/25/20 15:19 Albumin 4.2 g/dL (3.9-5) 10/25/20 15:19 Albumin/Globulin Ratio 1.2 % 10/25/20 15:19 Lipase 34 units/L (13-60) 10/23/20 21:38 Urine Color Yellow (Yellow) 10/24/20 08:40 Urine Turbidity Slightly-cloudy (Clear) 10/24/20 08:40 Urine pH 6.0 (5.0-7.0) 10/24/20 08:40 Ur Specific [place] 1.038 (1.003-1.030) H 10/24/20 08:40 Urine Protein 30 mg/dl mg/dL (Negative) 10/24/20 08:40 Urine Glucose (UA) >=500 mg/dL (Negative) 10/24/20 08:40 Urine Ketones 80 mg/dL (Negative) 10/24/20 08:40 Urine Blood Neg (Negative) 10/24/20 08:40 Urine Nitrite Neg (Negative) 10/24/20 08:40 Ur Reducing Substances Not Reportable 10/24/20 08:40 Urine Bilirubin Neg (Negative) 10/24/20 08:40 Urine Ictotest Not Reportable 10/24/20 08:40 Urine Urobilinogen < 2.0 mg/dL (<2.0) 10/24/20 08:40 Ur Leukocyte Esterase Sm (Negative) 10/24/20 08:40 Urine WBC (Auto) 53.0 /HPF (0.0-6.0) H 10/24/20 08:40 Urine RBC (Auto) 4.0 /HPF (0.0-6.0) 10/24/20 08:40 U Epithel Cells (Auto) 9.0 /HPF (0-13.0) 10/24/20 08:40 Urine Mucus Few /HPF 10/24/20 08:40 Urine HCG, Qual Negative (Negative) 10/24/20 08:40 Microbiology: Microbiology 10/24/20 08:40 Urine,Clean Catch Urine Culture - Preliminary [place]/IV: Voiding Method Toilet Active Medications - Current Medications Current Medications: Generic Name Dose Route Start Last Admin Trade Name Freq PRN Reason Stop Dose Admin Cetirizine HCl 10 mg 10/25/20 10:00 10/25/20 09:59 Cetirizine 10 Mg Tab PO 10 mg DAILY WILMER Administration Dextrose 0 ml 10/24/20 03:32 Dextrose 50% In Water (25gm) 50 Ml Syringe IV Q30MIN PRN Hypoglycemia Protocol Enoxaparin Sodium 40 mg 10/24/20 10:00 10/25/20 09:58 Enoxaparin 40 Mg/0.4 Ml Inj SUB-Q 40 mg QDAY@1000 WILMER Administration Protocol Gabapentin 600 mg 10/25/20 10:00 10/25/20 21:21 Gabapentin 300 Mg Cap PO 600 mg BID WILMER Administration Hydrochlorothiazide 25 mg 10/25/20 10:00 10/25/20 09:59 Hydrochlorothiazide 25 Mg Tab PO 25 mg QDAY WILMER Administration Sodium Chloride 1,000 mls @ 150 mls/hr 10/24/20 03:45 10/26/20 02:07 Nacl 0.9% 1000 Ml IV 150 mls/hr DIRECT WILMER Administration Insulin Human Isoph/Insulin Regular 22 unit 10/26/20 08:00 Insulin Nph/Regular 70/30 Inj SUB-Q BIDDIAB WILMER Insulin Human Lispro 0 unit 10/24/20 16:30 10/25/20 21:22 Insulin Lispro 100 Unit/Ml SUB-Q 8 unit ACHS WILMER Administration Protocol Losartan Potassium 25 mg 10/25/20 10:00 10/25/20 09:59 Losartan 25 Mg Tab PO 25 mg QDAY WILMER Administration Magnesium Hydroxide 30 ml 10/24/20 03:32 Magnesium Hydroxide (Mom) Oral Liqd Udc PO Q4H PRN Constipation Metformin HCl 500 mg 10/25/20 09:00 10/25/20 18:17 Metformin 500 Mg Tab PO 500 mg BIDDIAB WILMER Administration Morphine Sulfate 2 mg 10/24/20 03:32 Morphine 2 Mg/1 Ml Inj IV Q4H PRN Pain, Moderate (4-6) Ondansetron HCl 4 mg 10/24/20 03:32 Ondansetron 4 Mg/2 Ml Inj IV Q8H PRN Nausea And Vomiting Sodium Chloride 10 ml 10/24/20 10:00 10/25/20 21:20 Sodium Chloride 0.9% 10 Ml Flush Syringe IV 10 ml BID WILMER Administration Sodium Chloride 10 ml 10/24/20 03:32 Sodium Chloride 0.9% 10 Ml Flush Syringe IV PRN PRN LINE FLUSH Nutrition/Malnutrition Assess - Dietary Evaluation Nutrition/Malnutrition Findings: Nutrition Notes Start: 10/25/20 14:42 Freq: Status: Active Protocol: Document 10/25/20 14:42 (Rec: 10/25/20 14:46 [id number]) Nutrition Notes Need for Assessment generated from: MD Order,optical effects layout person,Education Initial or Follow up Brief Note Current Diagnosis Acute Kidney Injury,Diabetes, Hypertension Current Diet consistent CHO Labs/Tests A1c 12.5 BG on admission ~700 Subjective/Other Information MD order for diet edu and RN screen for new onset DM. Gave pt detailed DM diet education. All questions answered. Pt nervous and excited to start making changes. #1 Nutrition Diagnosis Food and nutrition-related knowledge deficit Etiology no prior DM diet education As Evidenced by Signs and Symptoms pt with new DM diagnosis Nutrition Intervention Change Diet Order: no beef, double vegetable Add Supplement/Snack (indicate name/kcal Glucerna BID /protein ) Provides kCal: 440 Provides Protein (gm) 20 Teaching Recipient Patient Learning Readiness Good Teaching Methods Discussion,Handout Response to Teaching Verbalize understanding Education Handouts Provided Planning Healthy Meals Nutrition Label Reading Tips Signs/Symptoms of Hyper/ Hypoglycemia Barriers to Learning No Barriers RD phone number provided Yes Patient aware of follow up options Yes Revisit per MD consult or patient Sign Off request:
[2020-10-26] MEDS: INSULIN LISPRO 100 UNIT/ML SUB-Q SCH ×4 (08:10→22:01)
[2020-10-26] MEDS: CETIRIZINE 10 MG TAB PO SCH (10:12)
[2020-10-26] MEDS: hydroCHLOROthiazide 25 MG TAB PO SCH (10:12)
[2020-10-26] MEDS: LOSARTAN 25 MG TAB PO SCH (10:12)
[2020-10-26] MEDS: GABAPENTIN 300 MG CAP PO SCH ×2 (10:12→22:01)
[2020-10-26] MEDS: ENOXAPARIN 40 MG/0.4 ML INJ SUB-Q SCH (10:12)
[2020-10-26] MEDS: INSULIN NPH/REGULAR 70/30 INJ SUB-Q SCH ×2 (10:13→17:50)
[2020-10-26] MEDS: metFORMIN 500 MG TAB PO SCH ×2 (10:14→17:50)
--- NOTE | 2020-10-26 15:46 | Progress Note ---
Assessment and Plan Impression * Acute kidney injury secondary to prerenal azotemia due to volume depletion * New onset type II DM * Hypertension * Proteinuria Plan: * BMP not available * UPCR pending collection - discussed with RN * Continue ARB for renoprotective benefits * Encouraged po hydration * Glycemic control per primary team * Avoid potential nephrotoxins * AM labs ordered * Will follow peripherally Subjective Date of service: 10/26/20 Interval history: Patient has no complaints Objective - Vital Signs Vital signs: Vital Signs - 12hr 10/26/20 10/26/20 10/26/20 06:03 10:00 10:12 Temperature 98.0 F Pulse Rate 86 86 86 Respiratory 20 Rate Blood Pressure 160/96 [Right] O2 Sat by Pulse 100 Oximetry - General Appearance General appearance: well-developed, well-nourished EENT: ATNC Neck: no JVD Respiratory: Present: Clear to Ascultation Cardiology: regular, S1S2 Gastrointestinal: normal, no tenderness, no distended Integumentary: no rash, warm and dry Neurologic: no focal deficit, alert and oriented x3 Psychiatric: mood/affect appropriate, cooperative - Lab 10/25/20 15:19 10/25/20 15:19 Most recent lab results Calcium 9.4 mg/dL (8.4-10.2) 10/25/20 15:19 Phosphorus 2.00 mg/dL (2.5-4.5) L 10/25/20 15:19 Magnesium 2.10 mg/dL (1.7-2.3) 10/25/20 15:19 Medications & Allergies - Medications Allergies/Adverse Reactions: Allergies naproxen [From Naprosyn] Allergy (Verified 10/24/20 03:04) Vomiting Home Medications: Home Medications Medication Instructions Recorded Confirmed Last Taken Type Butalb/Acetamin/Caff 50-325-40 1 tab PO Q6HR PRN #12 tab 08/06/20 10/24/20 Unknown Rx [Fioricet 50-325-40] Cyclobenzaprine HCl 5 mg PO BID 10/24/20 10/25/20 Unknown History Gabapentin [Neurontin] 600 mg PO BID 10/24/20 10/24/20 Unknown History Glipizide/Metformin HCl 500 mg PO BID 10/24/20 10/25/20 Unknown History Hydrochlorothiazide 25 mg PO QDAY 10/24/20 10/24/20 Unknown History Ibuprofen [Motrin] 800 mg PO Q8HR PRN 10/24/20 10/24/20 Unknown History Loratadine [Allergy Relief] 10 mg PO QDAY MDD 10mg 10/24/20 10/25/20 Unknown History Metoprolol Tartrate [Lopressor] 100 mg PO QDAY 10/24/20 10/24/20 Unknown History metFORMIN 500 mg PO BID 10/25/20 10/25/20 Unknown History Active Medications: Generic Name Dose Route Start Last Admin Trade Name Freq PRN Reason Stop Dose Admin Cetirizine HCl 10 mg 10/25/20 10:00 10/26/20 10:12 Cetirizine 10 Mg Tab PO 10 mg DAILY WILMER Administration Dextrose 0 ml 10/24/20 03:32 Dextrose 50% In Water (25gm) 50 Ml Syringe IV Q30MIN PRN Hypoglycemia Protocol Enoxaparin Sodium 40 mg 10/24/20 10:00 10/26/20 10:12 Enoxaparin 40 Mg/0.4 Ml Inj SUB-Q 40 mg QDAY@1000 WILMER Administration Protocol Gabapentin 600 mg 10/25/20 10:00 10/26/20 10:12 Gabapentin 300 Mg Cap PO 600 mg BID WILMER Administration Hydrochlorothiazide 25 mg 10/25/20 10:00 10/26/20 10:12 Hydrochlorothiazide 25 Mg Tab PO 25 mg QDAY WILMER Administration Sodium Chloride 1,000 mls @ 150 mls/hr 10/24/20 03:45 10/26/20 02:07 Nacl 0.9% 1000 Ml IV 150 mls/hr DIRECT WILMER Administration Insulin Human Isoph/Insulin Regular 22 unit 10/26/20 08:30 10/26/20 10:13 Insulin Nph/Regular 70/30 Inj SUB-Q 22 unit BIDDIAB WILMER Administration Insulin Human Lispro 0 unit 10/24/20 16:30 10/26/20 08:10 Insulin Lispro 100 Unit/Ml SUB-Q 8 unit ACHS WILMER Administration Protocol Losartan Potassium 25 mg 10/25/20 10:00 10/26/20 10:12 Losartan 25 Mg Tab PO 25 mg QDAY WILMER Administration Magnesium Hydroxide 30 ml 10/24/20 03:32 Magnesium Hydroxide (Mom) Oral Liqd Udc PO Q4H PRN Constipation Metformin HCl 500 mg 10/25/20 09:00 10/26/20 10:14 Metformin 500 Mg Tab PO 500 mg BIDDIAB WILMER Administration Morphine Sulfate 2 mg 10/24/20 03:32 Morphine 2 Mg/1 Ml Inj IV Q4H PRN Pain, Moderate (4-6) Ondansetron HCl 4 mg 10/24/20 03:32 Ondansetron 4 Mg/2 Ml Inj IV Q8H PRN Nausea And Vomiting Sodium Chloride 10 ml 10/24/20 10:00 10/26/20 10:32 Sodium Chloride 0.9% 10 Ml Flush Syringe IV 10 ml BID WILMER Administration Sodium Chloride 10 ml 10/24/20 03:32 Sodium Chloride 0.9% 10 Ml Flush Syringe IV PRN PRN LINE FLUSH
[2020-10-27 08:08] LABS: Blood Urea Nitrogen 10 mg/dL (7-17); Calcium 9.1 mg/dL (8.4-10.2); Hemolysis Index 62
[2020-10-27] MEDS: INSULIN LISPRO 100 UNIT/ML SUB-Q SCH ×2 (08:13→12:10)
[2020-10-27] MEDS: INSULIN NPH/REGULAR 70/30 INJ SUB-Q SCH (08:14)
[2020-10-27 08:16] LABS: BUN/Creatinine Ratio 17
[2020-10-27] MEDS: metFORMIN 500 MG TAB PO SCH (08:16)
[2020-10-27] MEDS: hydroCHLOROthiazide 25 MG TAB PO SCH (09:11)
[2020-10-27] MEDS: GABAPENTIN 300 MG CAP PO SCH (09:11)
[2020-10-27] MEDS: CETIRIZINE 10 MG TAB PO SCH (09:12)
[2020-10-27] MEDS: LOSARTAN 25 MG TAB PO SCH (09:12)
[2020-10-27] MEDS: ENOXAPARIN 40 MG/0.4 ML INJ SUB-Q SCH (09:12)
--- NOTE | 2020-10-27 11:22 | Progress Note ---
Assessment and Plan Assessment and Plan Assessment and plan: --s/p Hyperosmolar hyperglycemic state (HHS) Current Visit: No Status: Acute Continue rigorous IV hydration, off insulin drip. Closely monitor blood sugars and electrolytes Transitioned to long-acting insulin,Hb A1c 12.5,ADA diet , Patient is on oral hypoglycemics at home , Metformin and glipizide --Uncontrolled type 2 diabetes mellitus; A1c 12.5 Current Visit: No Status: Acute Accu-Chek sliding scale coverage ADA diet Increase Novolin 70/30 dose to 22 units twice a day Continue Metformin 500 twice a day Diabetic education, diabetic diet education Home health nurse for disease monitoring upon discharge --Hyponatremia/pseudohyponatremia Current Visit: No Status: Acute Due to hyperglycemia, significantly improved We will adjust medications for better control of blood sugars monitor electrolytes, --SJ (acute kidney injury) Current Visit: Yes Status: Acute/resolved Vasomotor nephropathy/prerenal azotemia Resolved, avoid nephrotoxins --Hypertension; Current Visit: No Status: Acute Moderate control continue current antihypertensives As needed hydralazine --Obesity; BMI 36.2 Current Visit: No Status: Acute Counseled the patient and advised weight reduction Dietary modification, lifestyle changes, exercise as tolerated, when medically stable Patient may also need outpatient sleep study to rule out Obstructive sleep apnea --DVT prophylaxis Current Visit: No Status: Acute Lovenox subcu -- Full code status Current Visit: No Status: Acute Plan to address problem: Patient is a full code. We will closely monitor the patient and adjust management as needed Plan of care reviewed with the patient and her nurse. Will follow consultants evaluation and recommendations Subjective Date of service: 10/27/20 Principal diagnosis: Hyperosmolar nonketotic state and diabetes came in with you Interval history: 10/25/2020; admitted with hyperosmolar hyperglycemia Status post insulin drip, started 7030 long-acting insulin added Metformin Closely monitor blood sugars, A1c 12.5, home health nurse at discharge Diabetic education and nutrition education Possible discharge in 1 to 2 days if stable 10/26/2020; patient's blood sugars remain uncontrolled High increase 70/30 Novolin to 22 units twice a day Continue Metformin Possible discharge in 1 to 2 days if blood sugars are well controlled Home health nurse at discharge 10/27/2020 Blood sugars are in reasonable range Patient educated about diabetes Patient to be discharged on Novolin 70/30 30 units twice a day Metformin 500 twice a day Daily walking Patient's labs were given Patient to follow-up with PCP Patient is intelligent and can follow instructions Patient knows how to do her insulin Objective - Constitutional Vitals: Vital Signs - 12hr 10/27/20 10/27/20 05:02 09:12 Temperature 97.9 F Pulse Rate 87 Respiratory 18 Rate Blood Pressure 144/82 143/89 O2 Sat by Pulse 100 Oximetry General appearance: Present: no acute distress, well-nourished - EENT Eyes: PERRL, EOM intact ENT: hearing intact, clear oral mucosa Ears: bilateral: normal - Neck Neck: supple, normal ROM - Respiratory Respiratory effort: normal Respiratory: bilateral: CTA - Breasts Breasts: normal - Cardiovascular Heart rate: 78 Rhythm: regular Heart Sounds: Present: S1 & S2. Absent: gallop, rub Extremities: pulses intact, No edema, normal color, Full ROM - Gastrointestinal General gastrointestinal: Present: soft, non-tender, non-distended, normal bowel sounds - Genitourinary Female genitourinary: normal - Integumentary Integumentary: clear, warm, dry - Musculoskeletal Musculoskeletal: 1, strength equal bilaterally - Neurologic Neurologic: moves all extremities - Psychiatric Psychiatric: memory intact, appropriate mood/affect, intact judgment & insight - Labs CBC & Chem 7: 10/25/20 15:19 10/27/20 07:01 Labs: Abnormal lab results 10/26/20 10/26/20 10/27/20 Range/Units 17:40 21:23 07:01 Sodium 132 L (137-145) mmol/L Carbon Dioxide 19 L (22-30) mmol/L Glucose 216 H (65-100) mg/dL POC Glucose 168 H 255 H (70-105) mg/dL 10/27/20 10/27/20 Range/Units 07:39 11:14 Sodium (137-145) mmol/L Carbon Dioxide (22-30) mmol/L Glucose (65-100) mg/dL POC Glucose 225 H 228 H (70-105) mg/dL HEART Score - HEART Score Troponin: Troponin T < 0.010 ng/mL (0.00-0.029) 10/24/20 03:13
[2020-10-27 11:31] LABS: Creatinine,Urine 350.8 mg/dL (0.1-20.0); Protein/Creatinine Ratio,Urine 0.19
[2020-10-27 14:15] VITALS: BP 138/77
--- NOTE | 2020-11-07 10:26 | Discharge Summary ---
Providers - Providers Date of Admission: 10/24/20 03:32 Date of discharge: 10/27/20 Attending physician: OG GARCIA 10/24/20 03:32 Consult to Dietitian/Nutrition [CONS] Routine Physician Instructions: Reason For Exam: Reason for Consult: Diet education 10/24/20 05:52 Consult to Physician [CONS] Routine Comment: Consulting Provider: SONIA HEREDIA Physician Instructions: Reason For Exam: SJ Primary care physician: [employer] Hospitalization Condition: Serious Hospital course: Subjective Date of service: 10/27/20 Principal diagnosis: Hyperosmolar nonketotic state and diabetes came in with you Interval history: 10/25/2020; admitted with hyperosmolar hyperglycemia Status post insulin drip, started 7030 long-acting insulin added Metformin Closely monitor blood sugars, A1c 12.5, home health nurse at discharge Diabetic education and nutrition education Possible discharge in 1 to 2 days if stable 10/26/2020; patient's blood sugars remain uncontrolled High increase 70/30 Novolin to 22 units twice a day Continue Metformin Possible discharge in 1 to 2 days if blood sugars are well controlled Home health nurse at discharge 10/27/2020 Blood sugars are in reasonable range Patient educated about diabetes Patient discharged on Novolin 70/30 30 units twice a day Metformin 500 twice a day Daily walking Patient's labs were given Patient to follow-up with PCP Patient is intelligent and can follow instructions Patient knows how to do her insulin Assessment and Plan Assessment and plan: --s/p Hyperosmolar hyperglycemic state (HHS) Current Visit: No Status: Acute Resolved --Uncontrolled type 2 diabetes mellitus; A1c 12.5 Current Visit: No Status: Acute Accu-Chek sliding scale coverage ADA diet Increase Novolin 70/30 dose to 22 units twice a day Continue Metformin 500 twice a day Diabetic education, diabetic diet education Home health nurse for disease monitoring upon discharge --Hyponatremia/pseudohyponatremia Current Visit: No Status: Acute Resolved --SJ (acute kidney injury) Current Visit: Yes Status: Acute/resolved Vasomotor nephropathy/prerenal azotemia Resolved, avoid nephrotoxins --Hypertension; Current Visit: No Status: Acute Moderate control continue current antihypertensives As needed hydralazine --Obesity; BMI 36.2 Current Visit: No Status: Acute Counseled the patient and advised weight reduction Dietary modification, lifestyle changes, exercise as tolerated, when medically stable Patient may also need outpatient sleep study to rule out Obstructive sleep apnea --DVT prophylaxis Current Visit: No Status: Acute Lovenox subcu -- Full code status Current Visit: No Status: Acute Plan to address problem: Patient is a full code. Disposition: DC-01 TO HOME OR SELFCARE Final Discharge Diagnosis (Prints w/discharge instructions): Hyperosmolar hyperglycemic state (HHS). Uncontrolled type 2 diabetes mellitus. Hyponatremia/pseudohyponatremia. --SJ (acute kidney injury). Vasomotor nephropathy/prerenal azotemia Time spent for discharge: 35 min - Discharge Diagnoses (1) Hyperosmolar hyperglycemic state (HHS) Status: Acute (2) Hyponatremia Status: Acute (3) SJ (acute kidney injury) Status: Acute (4) Blurry vision, bilateral Status: Acute (5) DVT prophylaxis Status: Acute Core Measure Documentation - Palliative Care Palliative Care/ Comfort Measures: Not Applicable - Core Measures Any of the following diagnoses?: none Exam - Constitutional Vitals: Temp Pulse Resp BP Pulse Ox 98.4 F 100 H 20 138/77 100 10/27/20 12:36 10/27/20 12:36 10/27/20 12:36 10/27/20 12:36 10/27/20 12:36 General appearance: Present: no acute distress, well-nourished - EENT Eyes: Present: PERRL ENT: hearing intact, clear oral mucosa - Neck Neck: Present: supple, normal ROM - Respiratory Respiratory effort: normal Respiratory: bilateral: CTA - Cardiovascular Heart rate: 78 Rhythm: regular Heart Sounds: Present: S1 & S2. Absent: rub, click - Extremities Extremities: pulses symmetrical, No edema Peripheral Pulses: within normal limits - Abdominal General gastrointestinal: Present: soft, non-tender, non-distended, normal bowel sounds Female genitourinary: Present: normal - Integumentary Integumentary: Present: clear, warm, dry - Musculoskeletal Musculoskeletal: gait normal, strength equal bilaterally - Psychiatric Psychiatric: appropriate mood/affect, intact judgment & insight - Neurologic Neurologic: CNII-XII intact, moves all extremities Plan Activity: no restrictions Diet: diabetic Follow up with: PRIMARY CARE, [Primary Care Provider] - 7 Days Forms: Work/School Release Form Prescriptions: Metoprolol Tartrate [Lopressor] 100 mg PO QDAY #90 metFORMIN 500 mg PO BID #180 Insulin NPH/Regular [Novolin 70/30] 30 unit SUB-Q BID 90 Days #4 vial Other Discharge Orders: Glucometer (Amb) Location: None Selected Glucometer supplies[Amb] Location: None Selected
== END 2020-10-27 14:10 | disposition home or self-care (01) | DRG 637 ==
LOC: ED 20:25 → CC1 10-24 03:32 → 3A 10-24 13:50
PROVIDERS: ADMIT Internal Medicine Geriatric Medicine; ATTEND Internal Medicine
DX: E11.00 Type 2 diabetes mellitus with hyperosmolarity without nonketotic hyperglycemic-hyperosmolar coma (NKHHC) (principal); N17.0 Acute kidney failure with tubular necrosis; E87.1 Hypo-osmolality and hyponatremia; I10 Essential (primary) hypertension; H53.8 Other visual disturbances; E66.9 Obesity, unspecified; Z68.36 Body mass index [BMI] 36.0-36.9, adult; Z71.3 Dietary counseling and surveillance; Z98.891 History of uterine scar from previous surgery; Z83.3 Family history of diabetes mellitus; Z88.8 Allergy status to other drugs, medicaments and biological substances; Z79.899 Other long term (current) drug therapy; Z79.4 Long term (current) use of insulin
CPT/HCPCS: 36415; 70450; 71046; 80048; 80053; 81001; 81025; 82570; 82805; 82962; 83036; 83690; 83735; 83880; 84100; 84156; 84484; 85025; 87086; 93005; G0378; J0696; J1650; J1815; J7030; J7120